=== PATIENT | female | born 1995 | race Caucasian/White ===

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

== ENCOUNTER 2017-01-18 16:56 | Emergency (ER) | payer MEDICAID ==
--- NOTE | 2017-01-18 18:01 | EDM.PDOC ---
ED HPI GENERAL MEDICAL PROBLEM - General Chief Complaint: Upper Extremity Injury/Pain Stated Complaint: INSECT BITE ON L WRIST Time Seen by Provider: 01/18/17 17:31 Source of Information: Reports: Patient, RN Notes Reviewed - History of Present Illness INITIAL COMMENTS - FREE TEXT/NARRATIVE: 21-year-old female comes in with insect bite reaction left wrist. She states that she was bit by some type of insect later last evening. This morning there was a fairly large area of erythema surrounding the bite and that area of erythema has enlarged quite a lot throughout the day. There has been Burning and itching-type discomfort associated with this. No proximal streaking. There been no redness or swelling of the wrist prior to the insect bite last evening. No generalized rash or urticaria. Left Wrist Pain Score (Numeric/FACES): 6 - Related Data Allergies Allergy/AdvReac Type Severity Reaction Status Date / Time pumpkin Allergy Hives Uncoded 09/24/16 22:06 Home Meds: Home Meds Amoxicillin/Potassium Clav [Augmentin 500-125 Tablet] 1 each PO Q12HR #14 tablet 01/18/17 [Rx] Past Medical History Respiratory History: Reports: Asthma Gastrointestinal History: Reports: Helicobacter Pylori Psychiatric History: Reports: ADHD, Anxiety, Depression - Past Surgical History HEENT Surgical History: Reports: Adenoidectomy, Oral Surgery, Tonsillectomy Social & Family History - Family History Family Medical History: Noncontributory - Tobacco Use Smoking Status *Q: Current Every Day Smoker Years of Tobacco use: 1 Packs/Tins Daily: 0.5 - Caffeine Use Caffeine Use: Reports: Soda Caffeine Use Comment: occasionally - Alcohol Use Days Per Week of Alcohol Use: 0 Number of Drinks Per Day: 2 Total Drinks Per Week: 0 - Recreational Drug Use Recreational Drug Use: Yes Drug Use in Last 12 Months: Yes Recreational Drug Type: Reports: Marijuana/Hashish Other Recreational Drug Type: every weekend Recreational Drug Use Frequency: Socially Review of Systems - Review of Systems Review Of Systems: See Below Constitutional: Denies: Chills, Fever Eyes: Reports: No Symptoms Mouth/Throat: Denies: Pain, Difficulty Swallowing Respiratory: Denies: Shortness of Breath Cardiovascular: Denies: Chest Pain GI/Abdominal: Denies: Nausea, Vomiting Musculoskeletal: Reports: Joint Pain (Left wrist, mild) Skin: Reports: Erythema (Volar aspect left wrist) Neurological: Denies: Numbness, Tingling ED EXAM, GENERAL - Physical Exam Exam: See Below General Appearance: Alert, No Apparent Distress Eye Exam: Bilateral Eye: PERRL Throat/Mouth: Normal Inspection Neck: Supple Respiratory/Chest: No Respiratory Distress, Lungs Clear Extremities: Limited Range of Motion (Left wrist), Increased Warmth, Redness ( Volar aspect left wrist) Neurological: No Motor/Sensory Deficits Skin Exam: Erythema (Large area of erythema volar aspect left wrist surrounding area of central swelling compatible with insect bite) Course - Vital Signs Last Recorded V/S: Last Vital Signs Temp 97.6 F 01/18/17 17:25 Pulse 76 01/18/17 17:25 Resp 20 01/18/17 17:25 BP 104/68 01/18/17 17:25 Pulse Ox 98 01/18/17 17:25 - Re-Assessments/Exams Free Text/Narrative Re-Assessment/Exam: 01/18/17 18:23 Patient did not see what actually bit her, it would seem that she would know if that was a be-year-old loss. This is more than what you would expect from mosquito bite and there are not hardly any mosquitoes around due to the dryness. Therefore spider bite is a strong possibility, will put her on Augmentin 500 twice a day for 1 week. Departure - Departure Time of Disposition: 17:58 Disposition: Home, Self-Care 01 Condition: Fair Clinical Impression: Cellulitis Qualifiers: Site of cellulitis of extremity: upper extremity Laterality: left Insect bite Qualifiers: Encounter type: initial encounter Qualified Code(s): W57.XXXA - Bitten or stung by nonvenomous insect and other nonvenomous arthropods, initial encounter - Discharge Information Prescriptions: Amoxicillin/Potassium Clav [Augmentin 500-125 Tablet] 1 each PO Q12HR #14 tablet Instructions: Cellulitis, Adult, Insect Bite Referrals: PCP,None [Primary Care Provider] - Forms: ED Department Discharge
== END 2017-01-18 18:24 | disposition home or self-care (01) ==
LOC: JD.ED 16:56
CPT/HCPCS: 99283

== ENCOUNTER 2018-12-26 08:20 | Emergency (ER) | payer MEDICAID ==
[2018-12-26 08:32] VITALS: BP 119/79
--- NOTE | 2018-12-26 08:48 | EDM.PDOC ---
ED HPI GENERAL MEDICAL PROBLEM - General Chief Complaint: Neurological Problem Stated Complaint: THIGHS NUMB Time Seen by Provider: 12/26/18 08:39 Source of Information: Reports: Patient History Limitations: Reports: No Limitations - History of Present Illness INITIAL COMMENTS - FREE TEXT/NARRATIVE: 23-year-old female presents to the ED from the workplace due to increasing lower extremity pain in both lateral thighs and hips. It's been going on for a while but it just seems to be getting worse. Struggling in the workplace this morning. Every step is painful. No falls or recent injuries. Currently on prednisone 25 mg twice a day for asthma exacerbation. This seems to be getting better. Onset: Gradual Onset Date: 12/23/18 Duration: Day(s):, Getting Worse Location: Reports: Lower Extremity, Left (Posterior lateral hip and thigh area. Radiates down to the knee.), Lower Extremity, Right (Mostly posterior lateral thigh and hip.) Quality: Reports: Ache, Burning, Pressure, Other (Some numbness tingling paresthesias.) Severity: Moderate Improves with: Reports: Rest Worsens with: Reports: Other (Prolonged standing or walking.) Context: Reports: Other. Denies: Activity, Exercise, Lifting, Sick Contact, Trauma Associated Symptoms: Reports: Weakness (Lower extremities show somewhat weak.). 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 (see below) (She is currently on prednisone 25 mg twice a day for exacerbation of asthma.) - Related Data Allergies Allergy/AdvReac Type Severity Reaction Status Date / Time pumpkin Allergy Hives Uncoded 12/26/18 08:32 Home Meds: Home Meds traZODone HCl [Trazodone HCl] 150 mg PO BEDTIME 06/09/18 [History] Diclofenac Sodium [Voltaren] 50 mg PO TID #30 tab.ec 12/26/18 [Rx] predniSONE [Prednisone] 50 mg PO BID 12/26/18 [History] Past Medical History Respiratory History: Reports: Asthma Gastrointestinal History: Reports: Helicobacter Pylori Psychiatric History: Reports: ADHD, Anxiety, Depression - Past Surgical History HEENT Surgical History: Reports: Adenoidectomy, Oral Surgery, Tonsillectomy Social & Family History - Family History Family Medical History: Noncontributory - Tobacco Use Smoking Status *Q: Current Every Day Smoker Years of Tobacco use: 3 Packs/Tins Daily: 0.4 - Caffeine Use Caffeine Use: Reports: Coffee, Soda Caffeine Use Comment: occasionally - Recreational Drug Use Recreational Drug Use: Yes Drug Use in Last 12 Months: Yes Recreational Drug Type: Reports: Marijuana/Hashish Recreational Drug Use Frequency: Socially - Living Situation & Occupation Living situation: Reports: Single Occupation: Employed ED ROS GENERAL - Review of Systems Review Of Systems: See Below Constitutional: Reports: Malaise, Weakness, Fatigue. Denies: Fever, Chills, Weight Loss HEENT: Reports: Glasses Respiratory: Reports: Shortness of Breath, Wheezing, Cough. Denies: Pleuritic Chest Pain (Currently experiencing an asthma exacerbation which is getting better.), Sputum Cardiovascular: Reports: Chest Pain Endocrine: Reports: Fatigue GI/Abdominal: Reports: No Symptoms Musculoskeletal: Reports: Back Pain, Other (Bilateral hip pain rating down the posterior asked lateral aspect of both thighs) Skin: Reports: No Symptoms Neurological: Reports: Paresthesia (Burning discomfort in both posterior lateral thighs) Psychiatric: Reports: No Symptoms Hematologic/Lymphatic: Reports: No Symptoms Immunologic: Reports: No Symptoms ED EXAM, NEURO - Physical Exam Exam: See Below Exam Limited By: No Limitations General Appearance: Alert, WD/WN, Mild Distress Eye Exam: Bilateral Eye: Normal Inspection Neurological: Alert, Normal Mood/Affect, Normal Dorsiflexion, CN II-XII Intact, Normal Plantar Flexion, Normal Gait, Normal Reflexes, No Motor/Sensory Deficits , Oriented x 3 DTR: 2+: Achilles (R), Achilles (L), 3+: Patella (R), Patella (L) Back Exam: Vertebral Tenderness (Marked tenderness over the L3-L4-L4-L5 facet joints and L5-S1 facet joint on the right side as compared to the left. Marked tenderness of both sacroiliac joints right greater than the left. Also marked tenderness of both greater trochanteric bursas..). No: CVA Tenderness (L), CVA Tenderness (R) Extremities: Normal Inspection, Normal Range of Motion. No: Non-Tender, No Pedal Edema, Normal Capillary Refill Psychiatric: Flat Affect Skin Exam: Warm, Dry, Intact, Normal Color, No Rash Course - Vital Signs Last Recorded V/S: Last Vital Signs Temp 36.4 C 12/26/18 08:31 Pulse 106 H 12/26/18 08:31 Resp 14 12/26/18 08:31 BP 119/79 12/26/18 08:31 Pulse Ox 100 12/26/18 08:31 - Radiology Interpretation Free Text/Narrative:: 23-year-old female presents to the ED with paresthesias in pain in both lower extremities. It's come on gradually over the last week or longer. It's worse today and she struggling in the workplace with her job of standing and walking excessively. No recent falls or injuries. Examination reveals that the pain is mostly in the posterior lateral aspect of the thighs down to the knees bilaterally. Found to have bilateral greater trochanteric bursitis on examination marked inflammation of both sacroiliac joints particularly the right compared to the left. Tenderness on the right lower back from L3-L5 facet joints. Patient is already on prednisone 25 mg twice a day for asthma exacerbation. Will add Voltaren 50 mg 3 times a day for the next 10 days as well. Advised to take these with food. Follow-up with personal care physician if not markedly improved in 7 days time Departure - Departure Time of Disposition: 08:50 Disposition: Home, Self-Care 01 Condition: Fair Clinical Impression: Lower extremity pain, bilateral, Greater trochanteric bursitis of both hips, Bilateral sacroiliitis - Discharge Information *PRESCRIPTION DRUG MONITORING PROGRAM REVIEWED*: Not Applicable *COPY OF PRESCRIPTION DRUG MONITORING REPORT IN PATIENT NICHOL: Not Applicable Prescriptions: Diclofenac Sodium [Voltaren] 50 mg PO TID #30 tab.ec Instructions: Bursitis, [id number] Referrals: Radha Sierra NP [Primary Care Provider] - Forms: ED Department Discharge, ED Return to Work/School Form Additional Instructions: Evaluation the emergency room today in regards to bilateral numbness tingling and pain in both lower extremities. It is mostly on the outer or lateral aspects of both thighs rating down to both knees. Examination reveals facet joint tenderness particularly noted in your right lower back at L3-L4, L4-L5 areas. This may be referring some pain down the leg. Both sacroiliac joints were markedly tender right worse than the left. Also both greater trochanteric processes of your hip bones are very tender to touch indicating inflammation. You are on prednisone for asthma. May continue 25 mg twice daily until finished. Additional medication will be anti-inflammatory Voltaren 50 mg 3 times daily for the next 10 days to relieve pain and inflammation in both lower extremities. Of note this will take about a day and a half to 2 days to start to work well. May return to work but try and limit amount of walking and prolonged standing if able. Follow-up with personal care physician if not markedly improved in 7 days time.
== END 2018-12-26 09:15 | disposition home or self-care (01) ==
LOC: JD.ED 08:20
DX: M70.62 Trochanteric bursitis, left hip (principal); M70.61 Trochanteric bursitis, right hip; M46.1 Sacroiliitis, not elsewhere classified; M79.661 Pain in right lower leg; M79.662 Pain in left lower leg; F17.210 Nicotine dependence, cigarettes, uncomplicated; F41.9 Anxiety disorder, unspecified; F32.9 Major depressive disorder, single episode, unspecified; F90.9 Attention-deficit hyperactivity disorder, unspecified type; Z79.899 Other long term (current) drug therapy; Z91.018 Allergy to other foods
CPT/HCPCS: 99283; 99284

== ENCOUNTER 2019-10-31 05:41 | Inpatient (IN) | payer MEDICAID ==
[~2019-10-31 05:41] MED LIST: Bupivacaine 0.25% 10 ML SDV ONE
[2019-10-31] MEDS ORDERED: Oxytocin/Lactated Ringers 10 UNIT/1,000 ML BAG IV SCH ×3 (06:15→21:59)
[2019-10-31] MEDS ORDERED: Lidocaine 1% 50 ML MDV INJECT ONE (06:15)
[2019-10-31] MEDS ORDERED: Nalbuphine 10 MG/ML Syringe IVPUSH PRN (06:15)
[2019-10-31] MEDS ORDERED: Sodium Chloride 0.9% 10 ML Syringe FLUSH PRN (06:15)
[2019-10-31] MEDS: Lactated Ringers 1,000 ML IV SCH ×4 (06:30→12:37)
[2019-10-31] MEDS ORDERED: ePHEDrine 50 MG/ML SDV IVPUSH PRN (07:38)
[2019-10-31] MEDS ORDERED: diphenhydrAMINE 50 MG/ML SDV IVPUSH PRN (07:38)
[2019-10-31] MEDS ORDERED: fentaNYL 100 MCG/2 ML SDV EPIDUR PRN (07:38)
[2019-10-31] MEDS: Bupivacaine/fentaNYL/NS 100 ML Bag EPIDUR PRN ×2 (08:03→17:09)
--- NOTE | 2019-10-31 08:11 | PCM.PREANE ---
Preanesthetic Assessment - Procedure Proposed Procedure: teresa - Anesthesia/Transfusion/Family Hx Anesthesia History: Prior Anesthesia Reaction Other Type of Anesthesia Reaction Comment: hyperventilation upon waking Family History of Anesthesia Reaction: No Transfusion History: No Prior Transfusion(s) - Review of Systems General: No Symptoms, Other (shskey) Pulmonary: No Symptoms Cardiovascular: No Symptoms Gastrointestinal: No Symptoms Neurological: No Symptoms Other: Reports: Depression, Anxiety - Physical Assessment Vital Signs: Last Vital Signs Temp 99.1 F 10/31/19 06:00 Pulse Resp 20 10/31/19 06:00 BP 127/76 10/31/19 06:00 Pulse Ox 99 10/31/19 06:00 Height: 5 ft 3 in Weight: 67.585 kg ASA Class: 2 Mental Status: Alert & Oriented x3 Airway Class: Mallampati = 1 Dentition: Reports: Normal Dentition Thyro-Mental Finger Breadths: 3 Mouth Opening Finger Breadths: 3 ROM/Head Extension: Full Lungs: Clear to Auscultation, Normal Respiratory Effort Cardiovascular: Regular Rate, Regular Rhythm, No Murmurs - Lab Values: Laboratory Last Values WBC 10.76 K/mm3 (3.98-10.04) H 10/31/19 06:57 RBC 3.98 M/mm3 (3.98-5.22) 10/31/19 06:57 Hgb 12.5 gm/dl (11.2-15.7) D 10/31/19 06:57 Hct 37.6 % (34.1-44.9) 10/31/19 06:57 MCV 94.5 fl (79.4-94.8) D 10/31/19 06:57 MCH 31.4 pg (25.6-32.2) 10/31/19 06:57 MCHC 33.2 g/dl (32.2-35.5) 10/31/19 06:57 RDW Std Deviation 44.0 fL (36.4-46.3) 10/31/19 06:57 Plt Count 261 K/mm3 (182-369) D 10/31/19 06:57 MPV 9.2 fl (9.4-12.3) L 10/31/19 06:57 Neut % (Auto) 81.9 % (34.0-71.1) H 10/31/19 06:57 Lymph % (Auto) 11.0 % (19.3-51.7) L 10/31/19 06:57 Pender % (Auto) 6.2 % (4.7-12.5) 10/31/19 06:57 Eos % (Auto) 0.2 (0.7-5.8) L 10/31/19 06:57 Baso % (Auto) 0.1 % (0.1-1.2) 10/31/19 06:57 Neut # (Auto) 8.82 K/mm3 (1.56-6.13) H 10/31/19 06:57 Lymph # (Auto) 1.18 K/mm3 (1.18-3.74) 10/31/19 06:57 Pender # (Auto) 0.67 K/mm3 (0.24-0.36) H 10/31/19 06:57 Eos # (Auto) 0.02 K/mm3 (0.04-0.36) L 10/31/19 06:57 Baso # (Auto) 0.01 K/mm3 (0.01-0.08) 10/31/19 06:57 Urine Color Yellow (Yellow) 10/31/19 05:49 Urine Appearance Slt cloudy (Clear) H 10/31/19 05:49 Urine pH 6.0 (5.0-8.0) 10/31/19 05:49 Ur Specific Worden > or = 1.030 (1.005-1.030) 10/31/19 05:49 Urine Protein 1+ (Negative) H 10/31/19 05:49 Urine Glucose (UA) Negative (Negative) 10/31/19 05:49 Urine Ketones Negative (Negative) 10/31/19 05:49 Urine Occult Blood Negative (Negative) 10/31/19 05:49 Urine Nitrite Negative (Negative) 10/31/19 05:49 Urine Bilirubin Negative (Negative) 10/31/19 05:49 Urine Urobilinogen 1.0 (0.2-1.0) 10/31/19 05:49 Ur Leukocyte Esterase Negative (Negative) 10/31/19 05:49 Urine RBC 0-5 /hpf (0-5) 10/31/19 05:49 Urine WBC 0-5 /hpf (0-5) 10/31/19 05:49 Ur Squamous Epith Cells 0-5 /hpf (0-5) 10/31/19 05:49 Amorphous Sediment Few /hpf (NOT SEEN) H 10/31/19 05:49 Urine Bacteria Moderate /hpf (FEW) H 10/31/19 05:49 Urine Mucus Moderate /hpf (FEW) H 10/31/19 05:49 Urine Opiates Screen Negative (NYDXQF=120) 10/31/19 05:49 Ur Buprenorphine Scrn Negative (CUTOFF=10) 10/31/19 05:49 Ur Oxycodone Screen Negative (FHX2VT=594) 10/31/19 05:49 Urine Methadone Screen Negative (RGOMJP=016) 10/31/19 05:49 Ur Propoxyphene Screen Negative (CSNLUT=178) 10/31/19 05:49 Ur Barbiturates Screen Negative (GBHDVD=097) 10/31/19 05:49 Ur Tricyclics Screen Negative (VLKXYV=922) 10/31/19 05:49 Ur Phencyclidine Scrn Negative (CUTOFF=25) 10/31/19 05:49 Ur Amphetamine Screen Negative (KRMFUZ=492) 10/31/19 05:49 U Methamphetamines Scrn Negative (ZFFNXE=328) 10/31/19 05:49 U Benzodiazepines Scrn Negative (LXFJAE=674) 10/31/19 05:49 U Cocaine Metab Screen Negative (FVNPJP=548) 10/31/19 05:49 U Marijuana (THC) Screen Presumptive positive (CUTOFF=50) H 10/31/19 05:49 - Allergies Allergies/Adverse Reactions: Allergies Allergy/AdvReac Type Severity Reaction Status Date / Time pumpkin Allergy Hives Uncoded 03/02/19 15:22 - Blood Blood Available: No - Acknowledgements Anesthesia Type Planned: Epidural Pt an Appropriate Candidate for the Planned Anesthesia: Yes Alternatives and Risks of Anesthesia Discussed w Pt/Guardian: Yes Pt/Guardian Understands and Agrees with Anesthesia Plan: Yes PreAnesthesia Questionnaire Cardiovascular History: Reports: None Respiratory History: Reports: Asthma Other Respiratory History: last attack and last inhaler use was before 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 School Gastrointestinal History: Reports: Chronic Constipation, GERD, Helicobacter Pylori Genitourinary History: Reports: None 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) Para: 0 Musculoskeletal History: Reports: Other (See Below) Other Musculoskeletal History: Greater Trochanteric Bursitis both hips, lower extremety pain bilaterally, and bilateral sacroiliitis Neurological History: Reports: None Psychiatric History: Reports: ADHD, Anxiety, Depression Endocrine/Metabolic History: Reports: None Hematologic History: Reports: None Immunologic History: Reports: None Oncologic (Cancer) History: Reports: None Dermatologic History: Reports: None - Infectious Disease History Infectious Disease History: Reports: Helicobacter Pylori Other Infectious Disease History: Infection x 3 - Past Surgical History Head Surgeries/Procedures: Reports: None HEENT Surgical History: Reports: Adenoidectomy, Oral Surgery, Tonsillectomy Cardiovascular Surgical History: Reports: None Respiratory Surgical History: Reports: None GI Surgical History: Reports: None Female Surgical History: Reports: None Endocrine Surgical History: Reports: None Neurological Surgical History: Reports: None Oncologic Surgical History: Reports: None Dermatological Surgical History: Reports: None - SUBSTANCE USE Smoking Status *Q: Current Every Day Smoker Tobacco Use Within Last Twelve Months: Cigarettes Second Hand Smoke Exposure: Yes Days Per Week of Alcohol Use: 0 Recreational Drug Use History: Yes Recreational Drug Type: Reports: Marijuana/Hashish Recreational Drug Last Use: Pt states last use 3 weeks ago - HOME MEDS Home Medications: Home Meds Albuterol Sulfate 1.25 mg IH DAILY 03/02/19 [History] - CURRENT (IN HOUSE) MEDS Current Meds: Current Medications Diphenhydramine HCl (Benadryl) 25 mg IVPUSH Q6H PRN PRN Reason: pruritis Ephedrine Sulfate (Ephedrine Sulfate) 5 mg IVPUSH ASDIRECTED PRN PRN Reason: Hypotension Fentanyl (Sublimaze) 100 mcg EPIDUR Q3H PRN PRN Reason: Pain Last Admin: 10/31/19 08:03 Dose: 100 mcg Fentanyl/Bupivacaine HCl (Fentanyl/Bupivacaine/Ns 2 Mcg-0.125% 100 Ml) 100 ml EPIDUR ASDIRECTED PRN PRN Reason: Pain Last Admin: 10/31/19 08:03 Dose: 100 ml Lactated Ringer's (Ringers, Lactated) 1,000 mls @ 100 mls/hr IV ASDIRECTED FAISAL Last Admin: 10/31/19 07:50 Dose: 900 mls/hr Oxytocin/Lactated Ringer's (Pitocin In Lr 10 Units/1,000 Ml) 10 unit in 1,000 mls @ 500 mls/hr IV .CONTINUOUS FAISAL; Protocol Nalbuphine HCl (Nubain) 10 mg IVPUSH Q2H PRN PRN Reason: Pain Sodium Chloride (Saline Flush) 10 ml FLUSH ASDIRECTED PRN PRN Reason: Keep Vein Open Discontinued Medications Lidocaine HCl (Xylocaine 1%) 50 ml INJECT SEECOMMENT ONE Stop: 10/31/19 06:16
--- NOTE | 2019-10-31 10:54 | PCM.LDHP ---
L&D History of Present Illness - General Date of Service: 10/31/19 Admit Problem/Dx: Patient Status Order with Admit Dx/Problem 10/31/19 05:44 Patient Status [ADT] Routine 10/31/19 06:15 Patient Status [ADT] Routine Admission Diagnosis/Problem Admission Diagnosis/Problem Source of Information: Patient History Limitations: Reports: No Limitations - History of Present Illness Introduction:: Maggy Palmer is a 24 year old at 39 weeks 5 days ([place] 11/02/2019) by LMP consistent with a 9-week ultrasound who presents for evaluation of possible labor. She reports that she started to have consistent contractions about 10 minutes apart in the evening of 10/30/2019 starting at around 10 PM. They continued throughout the evening and became closer and closer together until around 4:30 AM on 10/31/2019 when they were about 5 minutes apart. She reports that she did have some mucus vaginal discharge but denies any vaginal bleeding or leaking of fluid. Reports good movement. Timing/Duration: Reports: gradual onset, getting worse (started about 10 minutes apart and now 4-5 minutes apart) Location, : Reports: Lower back, Pelvic Quality: Reports: Pressure, Throbbing Severity: Severe Pain Score: 10 Improves with: Reports: None Associated Symptoms: Reports: vaginal discharge. Denies: vaginal bleeding, vaginal fluid Present Illness Comments:: Maggy Palmer is a 24-year-old at 39 weeks 5 days ([place] 11/02/2019) by LMP consistent with a 9-week ultrasound who presents in active labor. She has had routine care with Dr. Bingham starting at around 6 weeks gestational age. Her was overall uncomplicated but she did admit to marijuana use throughout the . She reports that her last time she used marijuana was approximately 3 weeks ago which would have been in late September 2019. She received Tdap vaccine on 08/19/2019 and flu vaccine on 2019. She reports a history of exercise-induced asthma but has not needed to use her inhaler throughout the . This is complicated by: * Drug use during -patient admits to marijuana use during the but has also had a history of other drugs previously including opiates. She denies use during the . * Anxiety and depression -patient was on Zoloft throughout the for her anxiety and depression but has not been taking the medication for the last month or so. She feels that her anxiety and depressive symptoms are under control at this time without medication. * Exercise-induced asthma -patient reports that she only needs to use her inhaler when she exercises. She has not used her inhaler throughout her . * Tobacco use in -reports that she smokes 3 to 5 cigarettes/day and has been trying to quit throughout the . She reports that she has cut down from her tobacco use in early . labs Blood type: O+ Antibody screen: Negative First trimester hemoglobin: 14.1 on 05/10/2019 Platelets: 304 on 05/10/2019 Urine culture: Negative Rubella status: Immune Hepatitis B surface antigen: Negative RPR: Negative HIV: Negative Gonorrhea: Negative Chlamydia: Negative Pap smear: NILM One hour glucose tolerance test: 163 Second trimester hemoglobin: 13.0 on 08/19/2019 Platelets: 248 on 08/19/2019 3-hour glucose tolerance test: Fasting 64, 1 hour 127, 2-hour 147, 3-hour 117 GBS status: Negative - Related Data Allergies/Adverse Reactions: Allergies Allergy/AdvReac Type Severity Reaction Status Date / Time pumpkin Allergy Hives Uncoded 03/02/19 15:22 Home Medications: Home Meds Albuterol Sulfate 1.25 mg IH DAILY 03/02/19 [History] Past Medical History Cardiovascular History: Reports: None Respiratory History: Reports: Asthma Other Respiratory History: last attack and last inhaler use was before High School Gastrointestinal History: Reports: Chronic Constipation, GERD, Helicobacter Pylori Genitourinary History: Reports: None HEAD OF INSIGHT History: Reports: : 1 Para: 0 Musculoskeletal History: Reports: Other (See Below) Other Musculoskeletal History: Greater Trochanteric Bursitis both hips, lower extremety pain bilaterally, and bilateral sacroiliitis Neurological History: Reports: None Psychiatric History: Reports: ADHD, Anxiety, Depression Endocrine/Metabolic History: Reports: None Hematologic History: Reports: None Immunologic History: Reports: None Oncologic (Cancer) History: Reports: None Dermatologic History: Reports: None - Infectious Disease History Infectious Disease History: Reports: Helicobacter Pylori Other Infectious Disease History: Infection x 3 - Past Surgical History Head Surgeries/Procedures: Reports: None HEENT Surgical History: Reports: Adenoidectomy, Oral Surgery ([place] tooth extraction), Tonsillectomy Cardiovascular Surgical History: Reports: None Respiratory Surgical History: Reports: None GI Surgical History: Reports: None Female Surgical History: Reports: None Endocrine Surgical History: Reports: None Neurological Surgical History: Reports: None Oncologic Surgical History: Reports: None Dermatological Surgical History: Reports: None Social & Family History - Family History Family Medical History: Noncontributory - Tobacco Use Smoking Status *Q: Current Every Day Smoker Years of Tobacco use: 6 Packs/Tins Daily: 0.2 Used Tobacco, but Quit: No Second Hand Smoke Exposure: Yes - Tobacco Core Measures Tobacco Use/Smoking Within Last 30 Days: Yes Smoking Frequency Within Last 30 Days: Reports: Five or More Cigarettes Per Day Desires Tobacco Cessation Medication: Refuses FDA Approved Med - Caffeine Use Caffeine Use: Reports: Soda Other Caffeine Use: 1 soda daily Caffeine Use Comment: occasionally - Alcohol Use Days Per Week of Alcohol Use: 0 - Recreational Drug Use Recreational Drug Use: Yes Drug Use in Last 12 Months: Yes Recreational Drug Type: Reports: Marijuana/Hashish Other Recreational Drug Type: Marijuana daily until about 3 weeks ago; pt uses this to help with her anxiety Recreational Drug Use Frequency: Daily Recreational Drug Last Use: Pt states last use 3 weeks ago - Living Situation & Occupation Living situation: Reports: Single Occupation: Employed H&P Review of Systems - Review of Systems: Review Of Systems: See Below General: Denies: Fever, Chills, Malaise, Weakness, Fatigue HEENT: Denies: Headaches, Rhinitis, Post Nasal Drip, Sinus Congestion, Sore Throat, Visual Changes Pulmonary: Denies: Shortness of Breath, Wheezing, Pleuritic Chest Pain, Cough Cardiovascular: Denies: Chest Pain, Palpitations, Dyspnea on Exertion, Orthopnea Gastrointestinal: Reports: Constipation. Denies: Abdominal Pain, Diarrhea, Nausea, Vomiting Genitourinary: Denies: Dysuria, Frequency, Burning, Pain, Urgency Musculoskeletal: Reports: Back Pain, Leg Pain Skin: Denies: Rash, Lesions Psychiatric: Denies: Depression, Anxiety L&D Exam - Exam Exam: See Below - Vital Signs Vital Signs: Last Vital Signs Temp 37.3 C 10/31/19 06:00 Pulse Resp 20 10/31/19 06:00 BP 127/76 10/31/19 06:00 Pulse Ox 99 10/31/19 06:00 Weight: 67.585 kg - OB Specific Contraction Duration (sec): 75-90 Contraction Frequency (min): 2-6 Contraction Intensity: Moderate to Strong Movement: Active Heart Tones: Present Heart Tones per Min: 135 (+15 x 15 accelerations, no decelerations) Heart Rate (FHR) Variability: Moderate (6-25 bmp) Presentation: Vertex Estimated Weight: 7-7.5 pounds by Brody - Asencio Score Asencio Score Cervix Position: Anterior Asencio Score Consistency: Soft Asencio Score Effacement: >80% (90%) Asencio Score Dilation: > 5 cm (5 cm) Asencio Score Infant's Station: -2 Asencio Score Total: 11 - Exam General: Alert, Oriented HEENT: Conjunctiva Clear, EOMI Neck: Supple, Trachea Midline Lungs: Clear to Auscultation, Normal Respiratory Effort Cardiovascular: Regular Rate, Regular Rhythm GI/Abdominal Exam: Soft, Non-Tender, No Distention, Other (Gravid). No: Guarding, Rigid, Rebound Genitourinary: Normal external exam, Other (Cervix dilated to 5 cm on exam. Artificial rupture of membranes performed with [place] with return of clear fluid. Mother and infant tolerated without difficulty.) Extremities: Normal Inspection, No Pedal Edema Skin: Warm, Dry, Intact Psychiatric: Alert, Normal Affect, Normal Mood - Patient Data Lab Results Last 24 hrs: Laboratory Results - last 24 hr 10/31/19 10/31/19 10/31/19 Range/Units 05:49 05:49 06:57 WBC 10.76 H (3.98-10.04) K/mm3 RBC 3.98 (3.98-5.22) M/mm3 Hgb 12.5 D (11.2-15.7) gm/dl Hct 37.6 (34.1-44.9) % MCV 94.5 D (79.4-94.8) fl MCH 31.4 (25.6-32.2) pg MCHC 33.2 (32.2-35.5) g/dl RDW Std Deviation 44.0 (36.4-46.3) fL Plt Count 261 D (182-369) K/mm3 MPV 9.2 L (9.4-12.3) fl Neut % (Auto) 81.9 H (34.0-71.1) % Lymph % (Auto) 11.0 L (19.3-51.7) % [place] % (Auto) 6.2 (4.7-12.5) % Eos % (Auto) 0.2 L (0.7-5.8) Baso % (Auto) 0.1 (0.1-1.2) % Neut # (Auto) 8.82 H (1.56-6.13) K/mm3 Lymph # (Auto) 1.18 (1.18-3.74) K/mm3 [place] # (Auto) 0.67 H (0.24-0.36) K/mm3 Eos # (Auto) 0.02 L (0.04-0.36) K/mm3 Baso # (Auto) 0.01 (0.01-0.08) K/mm3 Urine Color Yellow (Yellow) Urine Appearance Slt cloudy H (Clear) Urine pH 6.0 (5.0-8.0) Ur Specific [place] > or = 1.030 (1.005-1.030) Urine Protein 1+ H (Negative) Urine Glucose (UA) Negative (Negative) Urine Ketones Negative (Negative) Urine Occult Blood Negative (Negative) Urine Nitrite Negative (Negative) Urine Bilirubin Negative (Negative) Urine Urobilinogen 1.0 (0.2-1.0) Ur Leukocyte Esterase Negative (Negative) Urine RBC 0-5 (0-5) /hpf Urine WBC 0-5 (0-5) /hpf Ur Squamous Epith Cells 0-5 (0-5) /hpf Amorphous Sediment Few H (NOT SEEN) /hpf Urine Bacteria Moderate H (FEW) /hpf Urine Mucus Moderate H (FEW) /hpf Urine Opiates Screen Negative (QBIVVN=819) Ur Buprenorphine Scrn Negative (CUTOFF=10) Ur Oxycodone Screen Negative (VBI9LV=026) Urine Methadone Screen Negative (GDOVTZ=493) Ur Propoxyphene Screen Negative (QKZJEW=785) Ur Barbiturates Screen Negative (WOGFLS=449) Ur Tricyclics Screen Negative (QNXNUZ=818) Ur Phencyclidine Scrn Negative (CUTOFF=25) Ur Amphetamine Screen Negative (DQCEUB=263) U Methamphetamines Scrn Negative (WAFBHA=221) U Benzodiazepines Scrn Negative (JPYUFK=964) U Cocaine Metab Screen Negative (TGENDF=673) U Marijuana (THC) Screen Presumptive positive H (CUTOFF=50) Result Diagrams: 10/31/19 06:57 - Problem List (1) 39 weeks gestation of SNOMED Code(s): 94416372 ICD Code: Z3A.39 - 39 WEEKS GESTATION OF Status: Acute Current Visit: Yes (2) Drug use affecting SNOMED Code(s): 88568641, 946170533 ICD Code: O99.320 - DRUG USE COMPLICATING , UNSPECIFIED TRIMESTER Status: Acute Current Visit: Yes (3) Asthma during SNOMED Code(s): 64717525060021 ICD Code: O99.519 - DISEASES OF THE RESP SYS COMP , UNSP TRIMESTER; J45.909 - UNSPECIFIED ASTHMA, UNCOMPLICATED Status: Acute Current Visit: Yes (4) Tobacco use during SNOMED Code(s): 816672786409993 ICD Code: O99.330 - SMOKING (TOBACCO) COMPLICATING , UNSP TRIMESTER Status: Acute Current Visit: Yes Problem List Initiated/Reviewed/Updated: Yes Orders Last 24hrs: Active Orders 24 hr Category Date Time Status Patient Status [ADT] Routine ADT 10/31/19 06:15 Active Activity as Tolerated [RC] PFP Care 10/31/19 06:15 Active Communication Order [RC] ASDIRECTED Care 10/31/19 06:15 Active Heart Tones [RC] ASDIRECTED Care 10/31/19 06:15 Active Notify Provider [RC] ASDIRECTED Care 10/31/19 07:38 Active Notify Provider [RC] PFP Care 10/31/19 06:15 Active Notify Provider [RC] PRN Care 10/31/19 06:15 Active Peripheral IV Care [RC] . DIRECTED Care 10/31/19 06:15 Active Urinary Catheter Assessment [RC] ASDIRECTED Care 10/31/19 06:15 Active Vital Signs [RC] 09,15,21,03 Care 10/31/19 05:44 Active Regular Diet [DIET] Diet 10/31/19 Breakfast Active RAPID PLASMA REAGIN,RPR [CHEM] Routine Lab 10/31/19 06:57 Received Bupivacaine/fentaNYL/NS [fentaNYL/Bupivacaine/NS 2 MCG- Med 10/31/19 07:38 Active 0.125% 100 ML] 100 ml EPIDUR ASDIRECTED PRN Lactated Ringers [Ringers, Lactated] 1,000 ml Med 10/31/19 06:15 Active IV ASDIRECTED Nalbuphine [Nubain] Med 10/31/19 06:15 Active 10 mg IVPUSH Q2H PRN Oxytocin/Lactated Ringers [Pitocin in LR 10 Units/1,000 Med 10/31/19 06:15 Active ML] 10 unit in 1,000 ml IV .CONTINUOUS Sodium Chloride 0.9% [Saline Flush] Med 10/31/19 06:15 Active 10 ml FLUSH ASDIRECTED PRN diphenhydrAMINE [Benadryl] Med 10/31/19 07:38 Active 25 mg IVPUSH Q6H PRN ePHEDrine [ePHEDrine sulfate] Med 10/31/19 07:38 Active 5 mg IVPUSH ASDIRECTED PRN fentaNYL [Sublimaze] Med 10/31/19 07:38 Active 100 mcg EPIDUR Q3H PRN Electronic Heart Tones Ext w TOCO [WOMSER] Oth 10/31/19 06:15 Ordered Routine Electronic Heart Tones Internal [WOMSER] Per Unit Oth 10/31/19 06:15 Ordered Routine Peripheral IV Insertion Adult [OM.PC] Routine Oth 10/31/19 06:15 Ordered Resuscitation Status Routine Resus Stat 10/31/19 05:44 Ordered Medication Orders Diphenhydramine HCl (Benadryl) 25 mg IVPUSH Q6H PRN PRN Reason: pruritis Ephedrine Sulfate (Ephedrine Sulfate) 5 mg IVPUSH ASDIRECTED PRN PRN Reason: Hypotension Fentanyl (Sublimaze) 100 mcg EPIDUR Q3H PRN PRN Reason: Pain Last Admin: 10/31/19 08:03 Dose: 100 mcg Fentanyl/Bupivacaine HCl (Fentanyl/Bupivacaine/Ns 2 Mcg-0.125% 100 Ml) 100 ml EPIDUR ASDIRECTED PRN PRN Reason: Pain Last Admin: 10/31/19 08:03 Dose: 100 ml Lactated Ringer's (Ringers, Lactated) 1,000 mls @ 100 mls/hr IV ASDIRECTED FAISAL Last Admin: 10/31/19 08:19 Dose: 900 mls/hr Infusion: 10/31/19 08:19 Dose: 900 mls/hr Admin: 10/31/19 07:50 Dose: 900 mls/hr Infusion: 10/31/19 07:37 Dose: 900 mls/hr Admin: 10/31/19 06:30 Dose: 900 mls/hr Oxytocin/Lactated Ringer's (Pitocin In Lr 10 Units/1,000 Ml) 10 unit in 1,000 mls @ 500 mls/hr IV .CONTINUOUS FAISAL; Protocol Nalbuphine HCl (Nubain) 10 mg IVPUSH Q2H PRN PRN Reason: Pain Sodium Chloride (Saline Flush) 10 ml FLUSH ASDIRECTED PRN PRN Reason: Keep Vein Open Assessment/Plan Comment:: Refer to observation for spontaneous labor with cervical change Start Pitocin for augmentation of labor if contractions do not become regular every 2 to [address] IV and have Lactated Ringer's at 125 ml/hr May have small amounts of regular diet Activity as tolerated Patient with epidural in place for anesthesia Plans to breast-feed after delivery Plan to collect umbilical cord segment for drug screening due to history of marijuana use during the . Anticipate vaginal delivery unless otherwise indicated Sandro Gold MD 11:02 AM 10/31/2019
[2019-10-31] MEDS ORDERED: Ondansetron 4 MG/2 ML SDV IVPUSH PRN (11:58)
[2019-10-31] MEDS ORDERED: Lidocaine 1% 50 ML MDV ONE (20:38)
[2019-10-31] MEDS: Lidocaine 1% 20 ML MDV INJECT ONE ×2 (20:45→23:00)
--- NOTE | 2019-10-31 21:17 | PCM.DEL ---
L & D Note - General Info Date of Service: 10/31/19 Mother's Due Date: 11/02/19 - Delivery Note Labor: Spontaneous, Augmented by ARM, Augmented by Oxytocin Delivery Outcome: Livebirth Delivery Method: Spontaneous Vaginal Delivery-Single Presentation: Right Occiput Anterior (EFRAÍN) Nuchal Cord: None Prep: Povidone-Iodine (Betadine Anesthesia Type: Epidural, Local Anesthetic: Lidocaine (Xylocaine) 1% Plain Local Anesthetic Volume: Other (10 mL) Amniotic Fluid Description: Clear Episiotomy Type: None Laceration: 2nd Degree (midline perineal laceration, repaired with 3-0 Vicryl), Labial (right labial abrasion, hemostatic, not repaired) Suture type: Vicryl Suture size: 3-0 Placenta: Intact, Spontaneous Cord: 3 Vessels Estimated Blood Loss: 300 Resuscitation Needed: Yes : Suctioned, Bulb Syringe, Stimulated, Warmed, Russell Used, Warmer Used Provider: Sandro Gold Score 1 min: 8 Score 5 min: 9 Second Stage Interventions: Reports: Pushing Effectively, Pushing, Stirrups/Leg Supports Delivery Comments (Free Text/Narrative):: Stage I: Maggy Palmer was admitted for spontaneous labor. On admission her cervix was dilated to 3 cm. She was GBS negative. She was given an epidural for anesthesia. She had artificial rupture membranes with return of clear fluid. She was started on Pitocin for augmentation of her labor. She progressed to complete and pushing. Stage II: On 10/31/2019 she had a normal vaginal delivery of a live male at 20:23. Apgars of 8 & 9. Weight of 3750 g (8 lbs 4.3 oz). Length of 21.5 inches. There was no nuchal cord. Infant was delivered in EFRAÍN position. The cord was doubly clamped and cut by father the infant. was placed on mother's abdomen initially and then taken to the warmer for additional resuscitation. Stage III: She had a spontaneous delivery of an intact placenta in [place] presentation. Three vessel cord. She was given pitocin and fundal massage. She had a second-degree midline perineal laceration that was repaired with 3-0 Vicryl. She had a right labial abrasion that was hemostatic and not repaired. Mom and baby were stable to recovery. EBL of 300 mL. Sandro Gold MD 9:17 PM 10/31/2019 - General Info Date of Service: 10/31/19 - Patient Data Vitals - Most Recent: Last Vital Signs Temp 37.3 C 10/31/19 06:00 Pulse Resp 20 10/31/19 06:00 BP 127/76 10/31/19 06:00 Pulse Ox 99 10/31/19 06:00 Weight - Most Recent: 67.585 kg I&O - Last 24 Hours: Intake & Output 10/31/19 10/31/19 10/31/19 06:59 14:59 22:59 Intake Total 3000 Output Total 800 Balance 3000 -800 Lab Results Last 24 Hours: Laboratory Results - last 24 hr 10/31/19 10/31/19 10/31/19 Range/Units 05:49 05:49 06:57 WBC (3.98-10.04) K/mm3 RBC (3.98-5.22) M/mm3 Hgb (11.2-15.7) gm/dl Hct (34.1-44.9) % MCV (79.4-94.8) fl MCH (25.6-32.2) pg MCHC (32.2-35.5) g/dl RDW Std Deviation (36.4-46.3) fL Plt Count (182-369) K/mm3 MPV (9.4-12.3) fl Neut % (Auto) (34.0-71.1) % Lymph % (Auto) (19.3-51.7) % [place] % (Auto) (4.7-12.5) % Eos % (Auto) (0.7-5.8) Baso % (Auto) (0.1-1.2) % Neut # (Auto) (1.56-6.13) K/mm3 Lymph # (Auto) (1.18-3.74) K/mm3 [place] # (Auto) (0.24-0.36) K/mm3 Eos # (Auto) (0.04-0.36) K/mm3 Baso # (Auto) (0.01-0.08) K/mm3 Urine Color Yellow (Yellow) Urine Appearance Slt cloudy H (Clear) Urine pH 6.0 (5.0-8.0) Ur Specific [place] > or = 1.030 (1.005-1.030) Urine Protein 1+ H (Negative) Urine Glucose (UA) Negative (Negative) Urine Ketones Negative (Negative) Urine Occult Blood Negative (Negative) Urine Nitrite Negative (Negative) Urine Bilirubin Negative (Negative) Urine Urobilinogen 1.0 (0.2-1.0) Ur Leukocyte Esterase Negative (Negative) Urine RBC 0-5 (0-5) /hpf Urine WBC 0-5 (0-5) /hpf Ur Squamous Epith Cells 0-5 (0-5) /hpf Amorphous Sediment Few H (NOT SEEN) /hpf Urine Bacteria Moderate H (FEW) /hpf Urine Mucus Moderate H (FEW) /hpf Urine Opiates Screen Negative (NNQUWY=503) Ur Buprenorphine Scrn Negative (CUTOFF=10) Ur Oxycodone Screen Negative (VMN2DY=340) Urine Methadone Screen Negative (TJOYLR=257) Ur Propoxyphene Screen Negative (VJQVYU=163) Ur Barbiturates Screen Negative (SJYXBB=398) Ur Tricyclics Screen Negative (UHOQIY=431) Ur Phencyclidine Scrn Negative (CUTOFF=25) Ur Amphetamine Screen Negative (PMQYIV=541) U Methamphetamines Scrn Negative (BHQNHP=149) U Benzodiazepines Scrn Negative (XKEJGY=463) U Cocaine Metab Screen Negative (CVTFYU=556) U Marijuana (THC) Screen Presumptive positive H (CUTOFF=50) RPR Non-reactive (NONREACTIVE) 10/31/19 Range/Units 06:57 WBC 10.76 H (3.98-10.04) K/mm3 RBC 3.98 (3.98-5.22) M/mm3 Hgb 12.5 D (11.2-15.7) gm/dl Hct 37.6 (34.1-44.9) % MCV 94.5 D (79.4-94.8) fl MCH 31.4 (25.6-32.2) pg MCHC 33.2 (32.2-35.5) g/dl RDW Std Deviation 44.0 (36.4-46.3) fL Plt Count 261 D (182-369) K/mm3 MPV 9.2 L (9.4-12.3) fl Neut % (Auto) 81.9 H (34.0-71.1) % Lymph % (Auto) 11.0 L (19.3-51.7) % [place] % (Auto) 6.2 (4.7-12.5) % Eos % (Auto) 0.2 L (0.7-5.8) Baso % (Auto) 0.1 (0.1-1.2) % Neut # (Auto) 8.82 H (1.56-6.13) K/mm3 Lymph # (Auto) 1.18 (1.18-3.74) K/mm3 [place] # (Auto) 0.67 H (0.24-0.36) K/mm3 Eos # (Auto) 0.02 L (0.04-0.36) K/mm3 Baso # (Auto) 0.01 (0.01-0.08) K/mm3 Urine Color (Yellow) Urine Appearance (Clear) Urine pH (5.0-8.0) Ur Specific [place] (1.005-1.030) Urine Protein (Negative) Urine Glucose (UA) (Negative) Urine Ketones (Negative) Urine Occult Blood (Negative) Urine Nitrite (Negative) Urine Bilirubin (Negative) Urine Urobilinogen (0.2-1.0) Ur Leukocyte Esterase (Negative) Urine RBC (0-5) /hpf Urine WBC (0-5) /hpf Ur Squamous Epith Cells (0-5) /hpf Amorphous Sediment (NOT SEEN) /hpf Urine Bacteria (FEW) /hpf Urine Mucus (FEW) /hpf Urine Opiates Screen (ONCJXL=758) Ur Buprenorphine Scrn (CUTOFF=10) Ur Oxycodone Screen (PGM5IY=808) Urine Methadone Screen (HBYXBZ=262) Ur Propoxyphene Screen (FQDFHQ=412) Ur Barbiturates Screen (ICXXIF=855) Ur Tricyclics Screen (ITCJDB=728) Ur Phencyclidine Scrn (CUTOFF=25) Ur Amphetamine Screen (KGDZKT=896) U Methamphetamines Scrn (MTIKOW=477) U Benzodiazepines Scrn (TFOGCB=224) U Cocaine Metab Screen (WMHODR=518) U Marijuana (THC) Screen (CUTOFF=50) RPR (NONREACTIVE) Med Orders - Current: Current Medications Diphenhydramine HCl (Benadryl) 25 mg IVPUSH Q6H PRN PRN Reason: pruritis Ephedrine Sulfate (Ephedrine Sulfate) 5 mg IVPUSH ASDIRECTED PRN PRN Reason: Hypotension Fentanyl (Sublimaze) 100 mcg EPIDUR Q3H PRN PRN Reason: Pain Last Admin: 10/31/19 08:03 Dose: 100 mcg Fentanyl/Bupivacaine HCl (Fentanyl/Bupivacaine/Ns 2 Mcg-0.125% 100 Ml) 100 ml EPIDUR ASDIRECTED PRN PRN Reason: Pain Last Admin: 10/31/19 17:09 Dose: 100 ml Lactated Ringer's (Ringers, Lactated) 1,000 mls @ 100 mls/hr IV ASDIRECTED FAISAL Last Infusion: 10/31/19 09:26 Dose: Infused Oxytocin/Lactated Ringer's (Pitocin In Lr 10 Units/1,000 Ml) 10 unit in 1,000 mls @ 500 mls/hr IV .CONTINUOUS FAISAL; Protocol Oxytocin/Lactated Ringer's (Pitocin In Lr 10 Units/1,000 Ml) 10 unit in 1,000 mls @ 12 mls/hr IV TITRATE FAISAL; Protocol Last Titration: 10/31/19 13:45 Dose: 4 munits/min, 24 mls/hr Nalbuphine HCl (Nubain) 10 mg IVPUSH Q2H PRN PRN Reason: Pain Ondansetron HCl (Zofran) 4 mg IVPUSH Q4H PRN PRN Reason: Nausea/Vomiting Last Admin: 10/31/19 12:19 Dose: 4 mg Sodium Chloride (Saline Flush) 10 ml FLUSH ASDIRECTED PRN PRN Reason: Keep Vein Open Discontinued Medications Lidocaine HCl (Xylocaine 1%) 50 ml INJECT SEECOMMENT ONE Stop: 10/31/19 06:16 Last Admin: 10/31/19 12:41 Dose: Not Given Lidocaine HCl (Xylocaine 1%) Confirm Administered Dose 50 ml .ROUTE .STK-MED ONE Stop: 10/31/19 20:39 - Problem List & Annotations (1) 39 weeks gestation of SNOMED Code(s): 34308702 Code(s): Z3A.39 - 39 WEEKS GESTATION OF Status: Acute Current Visit: Yes (2) Drug use affecting SNOMED Code(s): 96260054, 107244120 Code(s): O99.320 - DRUG USE COMPLICATING , UNSPECIFIED TRIMESTER Status: Acute Current Visit: Yes (3) Asthma during SNOMED Code(s): 42865413388688 Code(s): O99.519 - DISEASES OF THE RESP SYS COMP , UNSP TRIMESTER; J45.909 - UNSPECIFIED ASTHMA, UNCOMPLICATED Status: Acute Current Visit: Yes (4) Tobacco use during SNOMED Code(s): 873596625818439 Code(s): O99.330 - SMOKING (TOBACCO) COMPLICATING , UNSP TRIMESTER Status: Acute Current Visit: Yes (5) Vaginal delivery SNOMED Code(s): 084787497 Code(s): O80 - ENCOUNTER FOR FULL-TERM UNCOMPLICATED DELIVERY Status: Acute Current Visit: Yes (6) Second degree perineal laceration during delivery SNOMED Code(s): 0050811 Code(s): O70.1 - SECOND DEGREE PERINEAL LACERATION DURING DELIVERY Status: Acute Current Visit: Yes - Problem List Review Problem List Initiated/Reviewed/Updated: Yes - My Orders Last 24 Hours: My Active Orders 10/31/19 05:44 Vital Signs [RC] 09,15,21,03 Resuscitation Status Routine 10/31/19 06:15 Patient Status [ADT] Routine Activity as Tolerated [RC] PFP Communication Order [RC] ASDIRECTED Heart Tones [RC] ASDIRECTED Notify Provider [RC] PFP Notify Provider [RC] PRN Peripheral IV Care [RC] . DIRECTED Urinary Catheter Assessment [RC] ASDIRECTED Lactated Ringers [Ringers, Lactated] 1,000 ml IV ASDIRECTED Nalbuphine [Nubain] 10 mg IVPUSH Q2H PRN Oxytocin/Lactated Ringers [Pitocin in LR 10 Units/1,000 ML] 10 unit in 1,000 ml IV .CONTINUOUS Sodium Chloride 0.9% [Saline Flush] 10 ml FLUSH ASDIRECTED PRN Electronic Heart Tones Ext w TOCO [WOMSER] Routine Electronic Heart Tones Internal [WOMSER] Per Unit Routine Peripheral IV Insertion Adult [OM.PC] Routine 10/31/19 11:58 Ondansetron [Zofran] 4 mg IVPUSH Q4H PRN 10/31/19 12:30 Oxytocin/Lactated Ringers [Pitocin in LR 10 Units/1,000 ML] 10 unit in 1,000 ml IV TITRATE 10/31/19 21:04 Patient Status Manage Transfer [TRANSFER] Routine 10/31/19 Breakfast Regular Diet [DIET] - Plan Plan:: Admit to inpatient following normal spontaneous vaginal delivery Continue Pitocin per unit protocol following delivery of placenta and lactated Ringer's until tolerating regular diet Regular diet Vitals per unit routine Ibuprofen and Tylenol for pain control Assist with breast-feeding as needed Continue to monitor lochia client services coordinator consult secondary to marijuana use during and history of drug use prior to Anticipate discharge home on day #2 Sandro Gold MD 9:17 PM 10/31/2019
[2019-10-31] MEDS ORDERED: Acetaminophen 325 MG Tab PO PRN (21:59)
[2019-10-31] MEDS ORDERED: Witch Hazel Medicated Pads 40/Jar TOP PRN (21:59)
[2019-10-31] MEDS ORDERED: Docusate Sodium 100 MG Cap PO PRN (21:59)
[2019-10-31] MEDS ORDERED: Benzocaine/Menthol 20%-0.5% Spray 56 GM Canister TOP PRN (21:59)
[2019-10-31] MEDS ORDERED: Hydrocortisone Acetate 25 MG Supp RECTAL PRN (21:59)
[2019-10-31] MEDS ORDERED: Magnesium Hydroxide 400 MG/5 ML Susp 30 ML Cup PO PRN (21:59)
[2019-10-31] MEDS: Ibuprofen 600 MG Tab PO PRN (22:15)
[2019-11-01] MEDS: Nicotine 14 MG/24 Hr Patch TRDERM SCH (01:40)
--- NOTE | 2019-11-01 07:35 | PCM.SN ---
- Free Text/Narrative Note: Post Progress Note PPD #1 Subjective: Doing well overall. Ambulating without difficulty. Lochia minimal. Voiding without difficulty. Tolerating regular diet without nausea or vomiting. Reports her pain is mostly just a soreness in her pelvic and perineal area and is able to be controlled with oral medications. Pumping breastmilk with formula supplementation with minimal difficulty. Objective: Vitals: Vital Signs - 24 hr 11/01/19 03:04 Temperature 36.6 C Pulse, 82 Peripheral Respiratory 14 Rate Blood Pressure 110/83 O2 Sat by Pulse 99 Oximetry Physical Exam General: Alert and oriented, no acute distress Lungs: Clear to auscultation bilaterally Heart: Regular rate and rhythm Abdomen: Soft, minimal appropriate tenderness, non-distended, fundus midline, nontender, and at the umbilicus Extremities: Trace edema in bilateral lower extremities to her ankles Laboratory Tests 10/31/19 10/31/19 10/31/19 Range/Units 05:49 05:49 06:57 WBC (3.98-10.04) K/mm3 RBC (3.98-5.22) M/mm3 Hgb (11.2-15.7) gm/dl Hct (34.1-44.9) % MCV (79.4-94.8) fl MCH (25.6-32.2) pg MCHC (32.2-35.5) g/dl RDW Std Deviation (36.4-46.3) fL Plt Count (182-369) K/mm3 MPV (9.4-12.3) fl Neut % (Auto) (34.0-71.1) % Lymph % (Auto) (19.3-51.7) % [place] % (Auto) (4.7-12.5) % Eos % (Auto) (0.7-5.8) Baso % (Auto) (0.1-1.2) % Neut # (Auto) (1.56-6.13) K/mm3 Lymph # (Auto) (1.18-3.74) K/mm3 [place] # (Auto) (0.24-0.36) K/mm3 Eos # (Auto) (0.04-0.36) K/mm3 Baso # (Auto) (0.01-0.08) K/mm3 Urine Color Yellow (Yellow) Urine Appearance Slt cloudy H (Clear) Urine pH 6.0 (5.0-8.0) Ur Specific [place] > or = 1.030 (1.005-1.030) Urine Protein 1+ H (Negative) Urine Glucose (UA) Negative (Negative) Urine Ketones Negative (Negative) Urine Occult Blood Negative (Negative) Urine Nitrite Negative (Negative) Urine Bilirubin Negative (Negative) Urine Urobilinogen 1.0 (0.2-1.0) Ur Leukocyte Esterase Negative (Negative) Urine RBC 0-5 (0-5) /hpf Urine WBC 0-5 (0-5) /hpf Ur Squamous Epith Cells 0-5 (0-5) /hpf Amorphous Sediment Few H (NOT SEEN) /hpf Urine Bacteria Moderate H (FEW) /hpf Urine Mucus Moderate H (FEW) /hpf Urine Opiates Screen Negative (DPHAAX=377) Ur Buprenorphine Scrn Negative (CUTOFF=10) Ur Oxycodone Screen Negative (JVL0GD=508) Urine Methadone Screen Negative (YNDIAD=266) Ur Propoxyphene Screen Negative (JTJYCU=694) Ur Barbiturates Screen Negative (HQIYLO=403) Ur Tricyclics Screen Negative (INTSBU=199) Ur Phencyclidine Scrn Negative (CUTOFF=25) Ur Amphetamine Screen Negative (AELYOG=228) U Methamphetamines Scrn Negative (LVKVMJ=216) U Benzodiazepines Scrn Negative (IDVJSE=489) U Cocaine Metab Screen Negative (MJZDOV=354) U Marijuana (THC) Screen Presumptive positive H (CUTOFF=50) RPR Non-reactive (NONREACTIVE) 10/31/19 Range/Units 06:57 WBC 10.76 H (3.98-10.04) K/mm3 RBC 3.98 (3.98-5.22) M/mm3 Hgb 12.5 D (11.2-15.7) gm/dl Hct 37.6 (34.1-44.9) % MCV 94.5 D (79.4-94.8) fl MCH 31.4 (25.6-32.2) pg MCHC 33.2 (32.2-35.5) g/dl RDW Std Deviation 44.0 (36.4-46.3) fL Plt Count 261 D (182-369) K/mm3 MPV 9.2 L (9.4-12.3) fl Neut % (Auto) 81.9 H (34.0-71.1) % Lymph % (Auto) 11.0 L (19.3-51.7) % [place] % (Auto) 6.2 (4.7-12.5) % Eos % (Auto) 0.2 L (0.7-5.8) Baso % (Auto) 0.1 (0.1-1.2) % Neut # (Auto) 8.82 H (1.56-6.13) K/mm3 Lymph # (Auto) 1.18 (1.18-3.74) K/mm3 [place] # (Auto) 0.67 H (0.24-0.36) K/mm3 Eos # (Auto) 0.02 L (0.04-0.36) K/mm3 Baso # (Auto) 0.01 (0.01-0.08) K/mm3 Urine Color (Yellow) Urine Appearance (Clear) Urine pH (5.0-8.0) Ur Specific [place] (1.005-1.030) Urine Protein (Negative) Urine Glucose (UA) (Negative) Urine Ketones (Negative) Urine Occult Blood (Negative) Urine Nitrite (Negative) Urine Bilirubin (Negative) Urine Urobilinogen (0.2-1.0) Ur Leukocyte Esterase (Negative) Urine RBC (0-5) /hpf Urine WBC (0-5) /hpf Ur Squamous Epith Cells (0-5) /hpf Amorphous Sediment (NOT SEEN) /hpf Urine Bacteria (FEW) /hpf Urine Mucus (FEW) /hpf Urine Opiates Screen (ZAVREC=991) Ur Buprenorphine Scrn (CUTOFF=10) Ur Oxycodone Screen (CES2EU=872) Urine Methadone Screen (TPMEGW=914) Ur Propoxyphene Screen (HVCIJG=199) Ur Barbiturates Screen (JRQFJV=398) Ur Tricyclics Screen (SCHMRC=353) Ur Phencyclidine Scrn (CUTOFF=25) Ur Amphetamine Screen (WXXRUN=833) U Methamphetamines Scrn (DZWILF=654) U Benzodiazepines Scrn (XSCITS=019) U Cocaine Metab Screen (ADKPML=818) U Marijuana (THC) Screen (CUTOFF=50) RPR (NONREACTIVE) ASSESSMENT: 24-year-old female -0-0-1 s/p normal vaginal delivery PPD #1, complicated by history of drug use in with presumptive positive marijuana test, anxiety and depression previously on Zoloft but stopped during , tobacco use in and history of exercise-induced asthma PLAN: Doing well Pumping breastmilk with formula supplementation with minimal difficulty. Assist as needed Lochia minimal. Continue to monitor for appropriate lochia. Continue routine care customer services supervisor consult secondary to marijuana use in Anticipate discharge home tomorrow Sandro Gold MD 7:35 AM 11/01/2019 TeleHealth - TeleHealth Patient Service Facility: [facility] Services: [facility] Informed Consent: Telemedicine Audio/Visual Informed Consent: The risks, benefits, and alternatives to the telehealth visit were explained to the patient and the patient consented to this modality of care. The telehealth visit was carried out via a secure, web-based conferencing system. This telemedicine service was a real-time, two-way interactive video and communication between the patient and the provider. All the parties involved were identified and approved by the patient prior to the visit. Any physical exam was assisted by the patient. Unless noted otherwise, the provider was located at their usual clinic location , and the patient was at their place of residence. Patient identity was confirmed by having the patient state their name and date of . All communications with the patient (verbal, audiovisual, and written) were documented in the patients medical record per documentation standards.
[2019-11-01] MEDS: Ibuprofen 600 MG Tab PO PRN ×3 (09:05→21:59)
[2019-11-01] MEDS: Prenatal Multivitamin with Calcium/Folic Acid/Iron Tab PO SCH (09:05)
--- NOTE | 2019-11-01 11:36 | PCM48HPAN ---
Post Anesthesia Note - EVALUATION WITHIN 48HRS OF ANESTHETIC Vital Signs in Normal Range: Yes Patient Participated in Evaluation: Yes Respiratory Function Stable: Yes Airway Patent: Yes Cardiovascular Function Stable: Yes Hydration Status Stable: Yes Pain Control Satisfactory: Yes Nausea and Vomiting Control Satisfactory: Yes Mental Status Recovered: Yes Vital Signs: Last Vital Signs Temp 36.8 C 11/01/19 09:01 Pulse 85 11/01/19 09:01 Resp 16 11/01/19 09:01 BP 110/69 11/01/19 09:01 Pulse Ox 97 11/01/19 09:01 - COMMENTS/OBSERVATIONS Free Text/Narrative:: Maggy is up walking around in her room. She does have back soreness at this time. She is taking Motrin for relief. No weakness/numbness noted in her legs. No headache. No further questions or concerns at this time.
[2019-11-02] MEDS: Prenatal Multivitamin with Calcium/Folic Acid/Iron Tab PO SCH (08:38)
[2019-11-02] MEDS: Ibuprofen 600 MG Tab PO PRN (08:38)
[2019-11-02] MEDS: Nicotine 14 MG/24 Hr Patch TRDERM SCH (08:39)
[2019-11-02 09:45] VITALS: BP 108/70; PULSE 83
--- NOTE | 2019-11-02 09:47 | PCM.SN ---
- Free Text/Narrative Note: Post Progress Note PPD #2 Subjective: Doing well overall. Ambulating without difficulty. Lochia minimal. Voiding without difficulty. Tolerating regular diet without nausea or vomiting. Reports her pain continues to be mostly just a soreness in her pelvic and perineal area and is able to be controlled with oral medications. Bottlefeeding exclusively at this time with minimal difficulty. Objective: Vitals: Vital Signs - 24 hr 11/01/19 11/01/19 11/02/19 14:45 20:10 03:22 Temperature 36.6 C 36.5 C 36.9 C Pulse, 98 100 101 H Peripheral Respiratory 16 16 18 Rate Blood Pressure 102/62 115/74 116/70 O2 Sat by Pulse 98 99 99 Oximetry 11/02/19 09:05 Temperature 36.7 C Pulse, 83 Peripheral Respiratory 16 Rate Blood Pressure 108/70 O2 Sat by Pulse 99 Oximetry Physical Exam General: Alert and oriented, no acute distress Lungs: Clear to auscultation bilaterally Heart: Regular rate and rhythm Abdomen: Soft, minimal appropriate tenderness, non-distended, fundus midline, nontender, and at the umbilicus Extremities: Trace edema in bilateral lower extremities to her ankles ASSESSMENT: 24-year-old female -0-0-1 s/p normal vaginal delivery PPD #2, complicated by history of drug use in with presumptive positive marijuana test, anxiety and depression previously on Zoloft but stopped during , tobacco use in and history of exercise-induced asthma PLAN: Doing well Bottlefeeding with minimal difficulty. Assist as needed Lochia minimal. Continue to monitor for appropriate lochia. Continue routine care patient services manager consult done and CPS report filed. Patient given information for counseling services. Discharge home today Sandro Gold MD 9:45 AM 11/02/2019 TeleHealth - TeleHealth Patient Service Facility: [facility]: [facility] Informed Consent: Telemedicine Audio/Visual Informed Consent: The risks, benefits, and alternatives to the telehealth visit were explained to the patient and the patient consented to this modality of care. The telehealth visit was carried out via a secure, web-based conferencing system. This telemedicine service was a real-time, two-way interactive video and communication between the patient and the provider. All the parties involved were identified and approved by the patient prior to the visit. Any physical exam was assisted by the patient. Unless noted otherwise, the provider was located at their usual clinic location , and the patient was at their place of residence. Patient identity was confirmed by having the patient state their name and date of . All communications with the patient (verbal, audiovisual, and written) were documented in the patients medical record per documentation standards.
--- NOTE | 2019-11-02 09:56 | PCM.DCSUM1 ---
Discharge Summary - Hospital Course Free Text/Narrative:: - General Info Date of Service: 10/31/19 Mother's Due Date: 11/02/19 - Delivery Note Labor: Spontaneous, Augmented by ARM, Augmented by Oxytocin Delivery Outcome: Livebirth Delivery Method: Spontaneous Vaginal Delivery-Single Presentation: Right Occiput Anterior (EFRAÍN) Nuchal Cord: None Prep: Povidone-Iodine (Betadine Anesthesia Type: Epidural, Local Anesthetic: Lidocaine (Xylocaine) 1% Plain Local Anesthetic Volume: Other (10 mL) Amniotic Fluid Description: Clear Episiotomy Type: None Laceration: 2nd Degree (midline perineal laceration, repaired with 3-0 Vicryl), Labial (right labial abrasion, hemostatic, not repaired) Suture type: Vicryl Suture size: 3-0 Placenta: Intact, Spontaneous Cord: 3 Vessels Estimated Blood Loss: 300 Resuscitation Needed: Yes [place]: Suctioned, Bulb Syringe, Stimulated, Warmed, [place] Used, Warmer Used Provider: Sandro Gold Score 1 min: 8 Score 5 min: 9 Second Stage Interventions: Reports: Pushing Effectively, Pushing, Stirrups/Leg Supports Delivery Comments (Free Text/Narrative):: Stage I: Maggy Palmer was admitted for spontaneous labor. On admission her cervix was dilated to 3 cm. She was GBS negative. She was given an epidural for anesthesia. She had artificial rupture membranes with return of clear fluid. She was started on Pitocin for augmentation of her labor. She progressed to complete and pushing. Stage II: On 10/31/2019 she had a normal vaginal delivery of a live male at 20:23. Apgars of 8 & 9. Weight of 3750 g (8 lbs 4.3 oz). Length of 21.5 inches. There was no nuchal cord. Infant was delivered in EFRAÍN position. The cord was doubly clamped and cut by father the . was placed on mother's abdomen initially and then taken to the warmer for additional resuscitation. Stage III: She had a spontaneous delivery of an intact placenta in [place] presentation. Three vessel cord. She was given pitocin and fundal massage. She had a second-degree midline perineal laceration that was repaired with 3-0 Vicryl. She had a right labial abrasion that was hemostatic and not repaired. Mom and baby were stable to recovery. EBL of 300 mL. HPI Initial Comments: - General Info Date of Service: 10/31/19 Mother's Due Date: 11/02/19 - Delivery Note Labor: Spontaneous, Augmented by ARM, Augmented by Oxytocin Delivery Outcome: Livebirth Delivery Method: Spontaneous Vaginal Delivery-Single Presentation: Right Occiput Anterior (EFRAÍN) Nuchal Cord: None Prep: Povidone-Iodine (Betadine Anesthesia Type: Epidural, Local Anesthetic: Lidocaine (Xylocaine) 1% Plain Local Anesthetic Volume: Other (10 mL) Amniotic Fluid Description: Clear Episiotomy Type: None Laceration: 2nd Degree (midline perineal laceration, repaired with 3-0 Vicryl), Labial (right labial abrasion, hemostatic, not repaired) Suture type: Vicryl Suture size: 3-0 Placenta: Intact, Spontaneous Cord: 3 Vessels Estimated Blood Loss: 300 Resuscitation Needed: Yes [place]: Suctioned, Bulb Syringe, Stimulated, Warmed, [place] Used, Warmer Used Provider: Sandro Gold Score 1 min: 8 Score 5 min: 9 Second Stage Interventions: Reports: Pushing Effectively, Pushing, Stirrups/Leg Supports Delivery Comments (Free Text/Narrative):: Stage I: Maggy Palmer was admitted for spontaneous labor. On admission her cervix was dilated to 3 cm. She was GBS negative. She was given an epidural for anesthesia. She had artificial rupture membranes with return of clear fluid. She was started on Pitocin for augmentation of her labor. She progressed to complete and pushing. Stage II: On 10/31/2019 she had a normal vaginal delivery of a live male at 20:23. Apgars of 8 & 9. Weight of 3750 g (8 lbs 4.3 oz). Length of 21.5 inches. There was no nuchal cord. was delivered in EFRAÍN position. The cord was doubly clamped and cut by father the . Infant was placed on mother's abdomen initially and then taken to the warmer for additional resuscitation. Stage III: She had a spontaneous delivery of an intact placenta in [place] presentation. Three vessel cord. She was given pitocin and fundal massage. She had a second-degree midline perineal laceration that was repaired with 3-0 Vicryl. She had a right labial abrasion that was hemostatic and not repaired. Mom and baby were stable to recovery. EBL of 300 mL. Brief History: - General Info. Date of Service: 10/31/19. Mother's Due Date: 11/02/19. - Delivery Note. Labor: Spontaneous, Augmented by ARM, Augmented by Oxytocin. Delivery Outcome: Livebirth. Delivery Method: Spontaneous Vaginal Delivery-Single. Presentation: Right Occiput Anterior (EFRAÍN). Nuchal Cord: None. Prep: Povidone-Iodine (Betadine. Anesthesia Type: Epidural , Local. Anesthetic: Lidocaine (Xylocaine) 1% Plain. Local Anesthetic Volume: Other (10 mL). Amniotic Fluid Description: Clear. Episiotomy Type: None. Laceration: 2nd Degree (midline perineal laceration, repaired with 3-0 Vicryl), Labial (right labial abrasion, hemostatic, not repaired). Suture type: Vicryl. Suture size: 3-0. Placenta: Intact, Spontaneous. Cord: 3 Vessels. Estimated Blood Loss: 300. Resuscitation Needed: Yes. [place]: Suctioned, Bulb Syringe, Stimulated, Warmed, [place] Used, Warmer Used. Provider : Sandro Gold. Score 1 min: 8. Score 5 min: 9. Second Stage Interventions: Reports: Pushing Effectively, Pushing, Stirrups/Leg Supports. Delivery Comments (Free Text/Narrative):: Stage I: Maggy Palmer was admitted for spontaneous labor. On admission her cervix was dilated to 3 cm. She was GBS negative. She was given an epidural for anesthesia. She had artificial rupture membranes with return of clear fluid. She was started on Pitocin for augmentation of her labor. She progressed to complete and pushing. Stage II: On 10/31/2019 she had a normal vaginal delivery of a live male infant at 20:23. Apgars of 8 & 9. Weight of 3750 g (8 lbs 4.3 oz). Length of 21.5 inches. There was no nuchal cord. was delivered in EFRAÍN position. The cord was doubly clamped and cut by father the infant. was placed on mother's abdomen initially and then taken to the warmer for additional resuscitation. Stage III: She had a spontaneous delivery of an intact placenta in [place] presentation. Three vessel cord. She was given pitocin and fundal massage. She had a second-degree midline perineal laceration that was repaired with 3-0 Vicryl. She had a right labial abrasion that was hemostatic and not repaired. Mom and baby were stable to recovery. EBL of 300 mL. Diagnosis: Stroke: No - Discharge Data Discharge Date: 11/02/19 Discharge Disposition: Home, Self-Care 01 Condition: Good - Referral to Home Health Primary Care Physician: Celsa Bingham MD - Discharge Diagnosis/Problem(s) (1) 39 weeks gestation of SNOMED Code(s): 33931799 ICD Code: Z3A.39 - 39 WEEKS GESTATION OF Status: Acute Current Visit: Yes (2) Drug use affecting SNOMED Code(s): 17831931, 647710340 ICD Code: O99.320 - DRUG USE COMPLICATING , UNSPECIFIED TRIMESTER Status: Acute Current Visit: Yes (3) Asthma during SNOMED Code(s): 37156416370353 ICD Code: O99.519 - DISEASES OF THE RESP SYS COMP , UNSP TRIMESTER; J45.909 - UNSPECIFIED ASTHMA, UNCOMPLICATED Status: Acute Current Visit: Yes (4) Tobacco use during SNOMED Code(s): 650575622926421 ICD Code: O99.330 - SMOKING (TOBACCO) COMPLICATING , UNSP TRIMESTER Status: Acute Current Visit: Yes (5) Vaginal delivery SNOMED Code(s): 640109134 ICD Code: O80 - ENCOUNTER FOR FULL-TERM UNCOMPLICATED DELIVERY Status: Acute Current Visit: Yes (6) Second degree perineal laceration during delivery SNOMED Code(s): 9038744 ICD Code: O70.1 - SECOND DEGREE PERINEAL LACERATION DURING DELIVERY Status : Acute Current Visit: Yes - Patient Summary/Data Complications: None Consults: Consultations 10/31/19 21:59 Consult to Case Management/Assembly Machine Tender [CONS] Routine Hospital Course: Maggy Palmer was admitted for spontaneous labor. On admission her cervix was dilated to 3 cm. She was GBS negative.she was given an epidural for anesthesia. She had artificial rupture of membranes with return of clear fluid. She was given pitocin for augmentation. She progressed to complete and began pushing. On 10/31/2019 she had a normal vaginal delivery of a live male infant at 20:23. Apgars of 8 and 9. Weight of 3750 g (8 pounds 4.3 ounces). Her course was uneventful. Her pain was well controlled and she had minimal lochia. She was ambulating, tolerating a regular diet and voiding normally. She was bottlefeeding with minimal difficulty. She was afebrile and her hematocrit was 37.6 on admission.a social media director consult was placed secondary to marijuana use in . A CPS report was filed. She was referred to counseling for ongoing management of her substance abuse disorder. She desired to be discharged home on the morning of PPD #2. Her blood type is O +. - Patient Instructions Diet: Regular Diet as Tolerated Activity: Apply Ice, As Tolerated Activity, Other: Nothing in the vagina for 6 weeks Driving: May Drive Today Showering/Bathing: May Shower Notify Provider of: Fever, Increased Pain, Swelling and Redness, Drainage, Nausea and/or Vomiting Other/Special Instructions: Please contact your physician's office if you have heavy vaginal bleeding enough to soak a pad in less than an hour for several hours. Monitor for any signs of an infection in the breasts with severe pain or redness of the breast. - Discharge Plan *PRESCRIPTION DRUG MONITORING PROGRAM REVIEWED*: Not Applicable *COPY OF PRESCRIPTION DRUG MONITORING REPORT IN PATIENT NICHOL: Not Applicable Home Medications: Home Meds Albuterol Sulfate 1.25 mg IH DAILY 03/02/19 [History] Acetaminophen [Tylenol] 650 mg PO Q6H PRN tablet 11/02/19 [Rx] Benzocaine/Menthol [Dermoplast Pain Relief [place]] 1 spray TOP ASDIRECTED PRN canister 11/02/19 [Rx] Docusate Sodium [Colace] 100 mg PO BID PRN cap 11/02/19 [Rx] Hydrocortisone Acetate [Anucort-HC] 25 mg RECTAL BID PRN supp 11/02/19 [Rx] Ibuprofen [Motrin] 600 mg PO Q6H PRN tablet 11/02/19 [Rx] Vit with Ca/FA/Iron [ Plus Iron] 1 each PO DAILY tablet [Rx] molly [place] [Tucks] 1 pad TOP ASDIRECTED PRN pad 11/02/19 [Rx] Patient Handouts: Steps to Quit Smoking, Care of a Perineal Tear, Care After Vaginal Delivery Referrals: Celsa Bingham MD [Primary Care Provider] - (Follow-up in 6 weeks for routine visit or earlier as needed.) - Discharge Summary/Plan Comment DC Time >30 min.: No - Patient Data Vitals - Most Recent: Last Vital Signs Temp 36.7 C 11/02/19 09:05 Pulse 83 11/02/19 09:05 Resp 16 11/02/19 09:05 BP 108/70 11/02/19 09:05 Pulse Ox 99 11/02/19 09:05 Weight - Most Recent: 67.585 kg I&O - Last 24 hours: Intake & Output 11/01/19 11/02/19 11/02/19 22:59 06:59 14:59 Intake Total 1180 Balance 1180 Med Orders - Current: Current Medications Acetaminophen (Tylenol) 650 mg PO Q6H PRN PRN Reason: mild pain or fever Benzocaine/Menthol (Dermoplast Pain Relief [place]) 0 gm TOP ASDIRECTED PRN PRN Reason: Perineal Comfort Measure Docusate Sodium (Colace) 100 mg PO BID PRN PRN Reason: Constipation Last Admin: 11/02/19 03:24 Dose: 100 mg Hydrocortisone Acetate (Anucort-Hc) 25 mg RECTAL BID PRN PRN Reason: Hemorrhoid pain Oxytocin/Lactated Ringer's (Pitocin In Lr 10 Units/1,000 Ml) 10 unit in 1,000 mls @ 100 mls/hr IV TITRATE FAISAL; Protocol Ibuprofen (Motrin) 600 mg PO Q6H PRN PRN Reason: Mild pain or fever Last Admin: 11/02/19 08:38 Dose: 600 mg Magnesium Hydroxide (Milk Of Magnesia) 30 ml PO BEDTIME PRN PRN Reason: Constipation Miscellaneous Information (Remove Patch) 1 ea TRDERM DAILY [facility] Last Admin: 11/01/19 09:09 Dose: 1 ea Nicotine (Habitrol) 14 mg TRDERM DAILY [facility] Last Admin: 11/02/19 08:39 Dose: 14 mg Prenat Multivit/Carpet Or Rug Layer Helper/Iron/Folic Ac ( Plus Iron) 1 each PO DAILY FAISAL Last Admin: 11/02/19 08:38 Dose: 1 each [place] (Tucks) 1 pad TOP ASDIRECTED PRN PRN Reason: Perineal Comfort Measure Last Admin: 10/31/19 22:16 Dose: 1 canister Discontinued Medications Bupivacaine HCl (Sensorcaine-Mpf 0.25%) 10 ml .ROUTE .STK-MED ONE Stop: 10/31/19 00:01 Diphenhydramine HCl (Benadryl) 25 mg IVPUSH Q6H PRN PRN Reason: pruritis Ephedrine Sulfate (Ephedrine Sulfate) 5 mg IVPUSH ASDIRECTED PRN PRN Reason: Hypotension Fentanyl (Sublimaze) 100 mcg EPIDUR Q3H PRN PRN Reason: Pain Last Admin: 10/31/19 08:03 Dose: 100 mcg Fentanyl/Bupivacaine HCl (Fentanyl/Bupivacaine/Ns 2 Mcg-0.125% 100 Ml) 100 ml EPIDUR ASDIRECTED PRN PRN Reason: Pain Last Admin: 10/31/19 17:09 Dose: 100 ml Lactated Ringer's (Ringers, Lactated) 1,000 mls @ 100 mls/hr IV ASDIRECTED FAISAL Last Infusion: 10/31/19 09:26 Dose: Infused Oxytocin/Lactated Ringer's (Pitocin In Lr 10 Units/1,000 Ml) 10 unit in 1,000 mls @ 500 mls/hr IV .CONTINUOUS FAISAL; Protocol Oxytocin/Lactated Ringer's (Pitocin In Lr 10 Units/1,000 Ml) 10 unit in 1,000 mls @ 12 mls/hr IV TITRATE FAISAL; Protocol Last Titration: 10/31/19 13:45 Dose: 4 munits/min, 24 mls/hr Lidocaine HCl (Xylocaine 1%) 50 ml INJECT SEECOMMENT ONE Stop: 10/31/19 06:16 Last Admin: 10/31/19 12:41 Dose: Not Given Lidocaine HCl (Xylocaine 1%) Confirm Administered Dose 50 ml .ROUTE .STK-MED ONE Stop: 10/31/19 20:39 Last Admin: 11/01/19 01:31 Dose: Not Given Lidocaine HCl (Xylocaine 1%) 50 ml INJECT ONETIME ONE Stop: 10/31/19 22:00 Last Admin: 10/31/19 20:45 Dose: 50 ml Nalbuphine HCl (Nubain) 10 mg IVPUSH Q2H PRN PRN Reason: Pain Ondansetron HCl (Zofran) 4 mg IVPUSH Q4H PRN PRN Reason: Nausea/Vomiting Last Admin: 10/31/19 12:19 Dose: 4 mg Sodium Chloride (Saline Flush) 10 ml FLUSH ASDIRECTED PRN PRN Reason: Keep Vein Open
== END 2019-11-02 11:45 | disposition home or self-care (01) | DRG 807 ==
LOC: JD.OB 05:41 → JD.OBCHECK 05:41 → JD.OB 06:15 → JD.OBCHECK 06:15 → OBSVTOIN 20:23 → JD.OB 20:24
PROVIDERS: ADMIT Obstetrics & Gynecology; ATTEND Obstetrics & Gynecology
PROC: 10E0XZZ Delivery of Products of Conception, External Approach (ICD-10-PCS; principal; 2019-10-31)
PROC: 0KQM0ZZ Repair Perineum Muscle, Open Approach (ICD-10-PCS; 2019-10-31)
PROC: 10907ZC Drainage of Amniotic Fluid, Therapeutic from Products of Conception, Via Natural or Artificial Opening (ICD-10-PCS; 2019-10-31)
PROC: 3E0R3BZ Introduction of Anesthetic Agent into Spinal Canal, Percutaneous Approach (ICD-10-PCS; 2019-10-31)
DX: O99.52 Diseases of the respiratory system complicating childbirth (principal); Z37.0 Single live birth; J45.909 Unspecified asthma, uncomplicated; O99.334 Smoking (tobacco) complicating childbirth; F17.200 Nicotine dependence, unspecified, uncomplicated; O70.1 Second degree perineal laceration during delivery; Z3A.39 39 weeks gestation of pregnancy; Z91.018 Allergy to other foods; Z79.899 Other long term (current) drug therapy
CPT/HCPCS: 36415; 51702; 59025; 59409; 80306; 81001; 85025; 86592; A9270-GY; J2001; J2405; J2590; J3010; J3490; J7120